=== PATIENT | male | born 1950 | race Caucasian/White ===

== ENCOUNTER 2016-02-24 15:30 | Outpatient (RCR) | payer BC ==
[~2016-02-24 15:30] MED LIST: ALTACE 1.25MG1.25 MG PO; AMARYL 2MG T2 MG/TAB PO; COLACE 100100 MG/CAP PO; COLCRYS0.6 MG PO; COZAAR100 MG PO; CYMBALTA 60MG60 MG PO; DAZIDOX10 MG PO; FARXIGA5 PO; GLUCOPHAGE1000 MG PO; HYZAAR; LASIX 40MG TABL40 MG PO; LUNESTA2 MG PO; MULTI VITAMINS1 TAB PO; NATURAL IRON65 MG PO; NEXIUM 40MG40 MG PO; NEXIUM40 MG PO; NORVASC; NORVASC 10MG10 MG PO; PERCOCET 5/321 UDTAB PO; RANITIDINE HYD300 MG PO; ROBAXIN-750750 MG PO; TOPROL XL100 MG PO; ZAROXOLYN 2.52.5 MG PO
== END 2016-04-03 | disposition home or self-care (01) ==
LOC: WSST
DX: R41.3 Other amnesia (principal); G09 Sequelae of inflammatory diseases of central nervous system; F32.89 Other specified depressive episodes

== ENCOUNTER 2016-09-08 10:15 | Inpatient (IN) | payer BC ==
[~2016-09-08] VITALS: Ht 190.5 cm; Wt 143.2 kg
[2016-09-08] MEDS ORDERED: ASPI325T6 PO (13:50)
[2016-09-08] MEDS ORDERED: CATAPRES 0.1MG0.1 MG PO (13:52)
[2016-09-08] MEDS ORDERED: GOOD NEIGH1200 MG/15 PO (13:54)
[2016-09-08] MEDS ORDERED: OXYCONTIN40 MG PO (13:54)
[2016-09-08] MEDS ORDERED: LYRICA 50MG CAP50 MG PO (13:55)
[2016-09-08] MEDS ORDERED: FLOMAX 0.40.4 MG/CAP PO (13:56)
[2016-09-08] MEDS ORDERED: WELLBUTRIN XL300 M1 PO (13:57)
[2016-09-08] MEDS ORDERED: CYMBALTA 60MG60 MG PO (14:30)
[2016-09-08 20:29] VITALS: BP 129/65; PULSE 80; TEMP 98.2
[2016-09-09 04:47] VITALS: BP 155/78; BP 169/75; PULSE 79; TEMP 98.6
[2016-09-09 17:09] VITALS: BP 154/91; PULSE 70; TEMP 97.6
[2016-09-10 05:45] VITALS: BP 146/64; PULSE 85; TEMP 98.2
[2016-09-10 17:00] VITALS: BP 131/81; PULSE 74; TEMP 98.7
[2016-09-11 04:26] VITALS: BP 148/96; PULSE 70; TEMP 98.5
[2016-09-11 06:20] LABS: BASO # 0.1 (0.0-0.2); BASO % 0.8 % (0.0-2.0); EOS # 0.6 (0.0-0.7); EOS % 6.4 % (0-4.0); GRAN # 4.8 (1.4-6.5); GRAN % 47.9 % (42.2-75.2); LYMPH % 29.7 % (20.0-51.0); MEAN CELL VOLUME 88 fl (80.0-100.0); MEAN CORPUSCULAR HGB CONC 33 g/dl (33.0-37.0); MEAN PLATELET VOLUME 9.3 fl (7.4-10.4); MONO # 1.4 (0.1-0.6); MONO % 14.2 % (1.7-9.3); PLATELET COUNT 347 K/mm3 (130-400); RED BLOOD COUNT 3.93 M/mm3 (4.20-5.60); REDCELL DISTRIBUTION WIDTH-CV 14.8 % (11.5-14.5)
[2016-09-11 06:25] LABS: HEMATOCRIT 34.7 % (42.0-52.0); HEMOGLOBIN 11.3 g/dl (13.5-18.0); MEAN CORPUSCULAR HEMOGLOBIN 29 pg (27.0-31.0)
[2016-09-11 06:30] LABS: CALCIUM 8.6 mg/dL (8.4-10.2); CREATININE, serum 1.03 mg/dL (0.66-1.25); MAGNESIUM 2.3 mg/dL (1.6-2.3); POTASSIUM 4.2 mmol/L (3.4-5.0)
[2016-09-11 16:08] VITALS: BP 135/75; PULSE 75; TEMP 98.5
[2016-09-12 06:15] VITALS: BP 161/86; PULSE 87; TEMP 99.9
[2016-09-12 14:21] VITALS: BP 100/60; PULSE 73; TEMP 97.6
[2016-09-12 14:25] VITALS: BP 163/119; PULSE 74
[2016-09-12 17:34] VITALS: BP 133/61; PULSE 72; TEMP 97.1
[2016-09-13 05:56] VITALS: BP 152/73; PULSE 77; TEMP 98.4
[2016-09-13 17:10] VITALS: BP 135/82; PULSE 83; TEMP 97.8
[2016-09-14 05:49] VITALS: BP 140/66; PULSE 79; TEMP 98.2
[2016-09-14] MEDS ORDERED: TYLENOL 325MG325 MG PO (10:19)
[2016-09-14] MEDS ORDERED: DAZIDOX20 MG PO (10:23)
== END 2016-09-14 12:24 | disposition home or self-care (01) | DRG 560 ==
PROVIDERS: Internal Medicine
DX: Z47.1 Aftercare following joint replacement surgery (principal); Z68.41 Body mass index [BMI] 40.0-44.9, adult; M17.11 Unilateral primary osteoarthritis, right knee; E66.01 Morbid (severe) obesity due to excess calories; I10 Essential (primary) hypertension
CPT/HCPCS: 99222-AI; 99232-AI; 99233-AI; 99239; J1650

== ENCOUNTER → 2020-06-15 | Outpatient (CLI) | payer MEDICARE, BC ==
[~2020-06-15] MED LIST changes: +ASPI325T6 PO; +CATAPRES 0.1MG0.1 MG PO; +DAZIDOX20 MG PO; +ELIQUIS 5MG PO; +FIBERCON; +FLOMAX 0.40.4 MG/CAP PO; +GOOD NEIGH1200 MG/15 PO; +LYRICA 50MG CAP50 MG PO; +MOTRIN 800800 MG/TAB PO; +NATURAL IRON65 MG; +OXYCONTIN40 MG PO; +ROXICODONE15 MG PO; +TYLENOL 325MG325 MG PO; +WELLBUTRIN XL300 M1 PO
== END ==
LOC: COL.RAD 11:50
DX: M25.561 Pain in right knee (principal)

== ENCOUNTER 2020-09-03 07:41 | Day surgery (SDC) | payer MEDICARE, BC ==
[~2020-09-03] VITALS: Ht 190.7 cm; Wt 144.0 kg
[2020-09-03] VITALS (9 sets, daily range): BP systolic 113–155; BP diastolic 92–111; PULSE 73–96; TEMP 98.3
[~2020-09-03 07:41] MED LIST changes: -ELIQUIS 5MG PO; -FIBERCON; -MOTRIN 800800 MG/TAB PO; -NATURAL IRON65 MG; -ROXICODONE15 MG PO
[2020-09-03] MEDS ORDERED: ROXICODONE15 MG PO (09:13)
[2020-09-03] MEDS ORDERED: MOTRIN 800800 MG/TAB PO (09:14)
[2020-09-03] MEDS ORDERED: CYMBALTA 60MG60 MG PO (09:14)
[2020-09-03] MEDS ORDERED: NATURAL IRON65 MG (09:16)
[2020-09-03] MEDS ORDERED: FIBERCON (09:18)
[2020-09-03 09:22] LABS: HEMATOCRIT 44.4 % (42.0-52.0); HEMOGLOBIN 13.5 g/dl (13.5-18.0); MEAN CELL VOLUME 82 fl (80.0-100.0); MEAN CORPUSCULAR HEMOGLOBIN 25 pg (27.0-31.0); MEAN CORPUSCULAR HGB CONC 30 g/dl (33.0-37.0); MEAN PLATELET VOLUME 9.6 fl (7.4-10.4); PLATELET COUNT 218 K/mm3 (130-400); RED BLOOD COUNT 5.39 M/mm3 (4.20-5.60); REDCELL DISTRIBUTION WIDTH-CV 18.6 % (11.5-14.5)
[2020-09-03 09:28] LABS: INR 1.1 (0.8-3.0); PROTHROMBIN TIME 11.8 SECONDS (9.7-12.8)
[2020-09-03 09:31] LABS: PARTIAL THROMBOPLASTIN TIME 32.5 SECONDS (26.0-37.0)
[2020-09-03 09:38] LABS: CALCIUM 8.9 mg/dL (8.4-10.2); CREATININE, serum 0.97 (0.66-1.25); POTASSIUM 3.6 mmol/L (3.4-5.0)
[2020-09-03] MEDS ORDERED: ELIQUIS 5MG PO (09:39)
--- NOTE | 2020-09-03 10:28 | NUR ---
SEE MERGE FOR ALL MEDICATION ADMINISTRATION TIMES, INTRA AND POST SEDATION ASSESSMENTS
--- NOTE | 2020-09-03 10:45 | NUR ---
PT RETURNED TO [facility] VIA BED FROM [employer] [employer], PT IS AWAKE AND ALERT, IN ROOM, HOB ELEVATED, NO C/O. TAKES COFFEE AND WATER, REVIEWED ACTIVITY ORDERS WITH PT, CALL LIGHT MACYEALANCE
--- NOTE | 2020-09-03 11:30 | NUR ---
PT WATCHES TV, SITS UP IN BED EATS LUNCH, NO C/O OR REQUESTS, DR CRAINAT IN EARLIER TO TALK TO PT AND
--- NOTE | 2020-09-03 12:45 | NUR ---
TR BAND RELEASED 2CC OVER 30 MIN WITH NO BLEEDING, SWELLING. BANDAID PLACED ON SITE WITH COBAN, REVIEWED DISCHARGE INST. WITH PT ON ACTIVITY, CARE OF SITE, AND FOLLOWUP WITH VERBAL UNDERSTANDING.
--- NOTE | 2020-09-03 13:30 | NUR ---
IV D'CD INTACT, PT SITS ON SIDE OF BED DRESSED, ASSISTED BY , DISCHARGED VIA W/C TO CAR WITH STAFF
== END 2020-09-03 13:30 | disposition home or self-care (01) ==
LOC: COL.CAR 07:41
PROVIDERS: Internal Medicine Cardiovascular Disease
DX: I25.10 Atherosclerotic heart disease of native coronary artery without angina pectoris (principal); I10 Essential (primary) hypertension; I48.0 Paroxysmal atrial fibrillation; E11.9 Type 2 diabetes mellitus without complications; E78.5 Hyperlipidemia, unspecified; I34.0 Nonrheumatic mitral (valve) insufficiency; Z79.01 Long term (current) use of anticoagulants; Z79.899 Other long term (current) drug therapy; Z79.84 Long term (current) use of oral hypoglycemic drugs
CPT/HCPCS: C1769; J1644; J1940; J2250; J3010; J7030